=== PATIENT | male | born 1980 | race Hispanic/Latino ===

== ENCOUNTER 2022-05-28 12:09 | Emergency (ER) | payer OTHER ==
[~2022-05-28] VITALS: Ht 162.6 cm; Wt 70.3 kg
[2022-05-28 12:53] LABS: BASOPHILS % (AUTO) 0.3 % (0.0-5.0); EOSINOPHILS % (AUTO) 0.2 % (0.0-8.0); HEMATOCRIT 43.3 % (42-54); LYMPHOCYTES % (AUTO) 15.6 % (21.0-51.0); MEAN CORPUSCULAR HEMOGLOBIN 31.5 pg (27.0-33.0); MEAN CORPUSCULAR HGB CONC 35.3 g/dL (32.0-36.0); MEAN CORPUSCULAR VOLUME 89.1 fL (79-99); MONOCYTES % (AUTO) 9.2 % (3.0-13.0); NEUTROPHILS % (AUTO) 74.5 % (40.0-77.0); PLATELET COUNT (AUTO) 231 K/uL (130-400); RED BLOOD CELL COUNT(AUTO) 4.86 MIL/uL (4.50-6.20); RED CELL DISTRIBUTION WIDTH 11.9 % (11.0-15.5); WHITE BLOOD COUNT (AUTO) 10.7 K/uL (4.8-10.8)
[2022-05-28 13:12] LABS: CREATININE 0.8 mg/dL (0.5-1.5); POTASSIUM 3.4 mmol/L (3.5-5.1); TOTAL PROTEIN, SERUM 7.9 g/dL (6.0-8.3)
[2022-05-28] MEDS ORDERED: 0.9%NACL 1000ML 1,000 ML IV SCH ×2 (13:30→16:30)
[2022-05-28] MEDS ORDERED: MORPHINE 4 MG SYG IVP ONE ×2 (13:30→18:30)
[2022-05-28] MEDS ORDERED: ONDANSETRON 4MG INJ IVP ONE ×2 (13:30→18:30)
[2022-05-28] MEDS ORDERED: 0.9%NACL 1000ML 1,000 ML IV ONE (16:09)
[2022-05-28] MEDS ORDERED: IOHEXOL 350 MG/ML 100ML INFUS..BTL IV ONE (17:15)
[2022-05-28] MEDS ORDERED: ESOM40CA PO (18:14)
[2022-05-28] MEDS ORDERED: OXYC-38 PO (18:14)
[2022-05-28] MEDS ORDERED: ONDA4TAB10 PO (18:14)
[2022-05-28 18:23] VITALS: BP 126/75
[2022-05-28] MEDS ORDERED: LIDOCAINE HCL 2% VISCOUS 15 ML UDCUP PO ONE (18:30)
[2022-05-28] MEDS ORDERED: DICYCLOMINE HCL 10 MG/5 ML ML PO ONE (18:30)
[2022-05-28] MEDS ORDERED: MAG/ALUM/SIMETH 30 ML UDCUP PO ONE (18:30)
[2022-05-28] MEDS ORDERED: PANTOPRAZOLE 40 MG/VIAL IVP ONE (18:30)
== END 2022-05-28 18:56 | disposition home or self-care (01) ==
LOC: EDH 12:09
DX: K29.00 Acute gastritis without bleeding (principal)
CPT/HCPCS: 99285; 74177; 96374; 96361; 96375; 80053; 83690; 85025; 36415; 96376; J7030; J2405 ×2; J2270 ×2; C9113; Q9967

== ENCOUNTER 2022-06-01 10:59 | Emergency (ER) | payer OTHER ==
[~2022-06-01] VITALS: Ht 165.1 cm; Wt 77.1 kg
[~2022-06-01 10:59] MED LIST: ESOM40CA PO; ONDA4TAB10 PO; OXYC-38 PO
[2022-06-01 11:11] VITALS: BP 115/72
[2022-06-01 11:41] LABS: BASOPHILS % (AUTO) 0.2 % (0.0-5.0); EOSINOPHILS % (AUTO) 0.7 % (0.0-8.0); HEMATOCRIT 43.9 % (42-54); LYMPHOCYTES % (AUTO) 16.4 % (21.0-51.0); MEAN CORPUSCULAR HEMOGLOBIN 31.1 pg (27.0-33.0); MEAN CORPUSCULAR HGB CONC 34.6 g/dL (32.0-36.0); MONOCYTES % (AUTO) 9.4 % (3.0-13.0); PLATELET COUNT (AUTO) 278 K/uL (130-400); RED BLOOD CELL COUNT(AUTO) 4.88 MIL/uL (4.50-6.20); RED CELL DISTRIBUTION WIDTH 11.9 % (11.0-15.5); WHITE BLOOD COUNT (AUTO) 10.6 K/uL (4.8-10.8)
[2022-06-01 11:55] LABS: CARBON DIOXIDE 24 mmol/L (21-32); CHLORIDE 95 mmol/L (101-111); CREATININE 0.9 mg/dL (0.5-1.5); GLOMERULAR FILTR. RATE CALC 99 mL/min (>60); GLUCOSE,RANDOM 122 mg/dL (70-105); POTASSIUM 3.6 mmol/L (3.5-5.1); SODIUM SERUM 131 mmol/L (136-145); UREA NITROGEN, BLOOD 7 mg/dL (7-18)
[2022-06-01 11:59] LABS: ALANINE AMINOTRANSFERASE 44 U/L (12-78); ALBUMIN 3.5 g/dL (3.5-5.0); ASPARTATE AMINOTRANSFERASE 19 U/L (10-37); TOTAL PROTEIN, SERUM 8.1 g/dL (6.0-8.3)
[2022-06-01 12:16] LABS: LIPASE < 50 U/L (114-286)
[2022-06-01] MEDS ORDERED: MORPHINE 4 MG SYG IVP ONE (13:00)
[2022-06-01] MEDS ORDERED: 0.9%NACL 1000ML 1,000 ML IV ONE (13:00)
[2022-06-01] MEDS ORDERED: ONDANSETRON 4MG INJ IVP ONE (13:00)
[2022-06-01] MEDS ORDERED: KETOROLAC 15MG/ML VIAL (15MG/ML) IV ONE (13:00)
[2022-06-01] MEDS ORDERED: ACET-2079 PO (14:52)
[2022-06-01] MEDS ORDERED: ONDA4TAB10 PO (14:52)
[2022-06-01] MEDS ORDERED: NAPR-1023 PO (14:52)
== END 2022-06-01 15:42 | disposition home or self-care (01) ==
LOC: EDH 10:59
DX: K80.20 Calculus of gallbladder without cholecystitis without obstruction (principal); Z79.899 Other long term (current) drug therapy
CPT/HCPCS: 99285; 96374; 76705; 96361; 96375; 84484; 80053; 83690; 85025; 36415; 93005; J7030; J2405; J2270; J1885